=== PATIENT | male | born 1960 | race Caucasian/White ===

== ENCOUNTER 2022-05-26 13:54 | Outpatient (CLI) | payer OTHER, SELFPAY ==
[2022-05-26 23:25] LABS: Albumin* 4.5 g/dL (3.3-5.0); Chloride* 103 mmol/L (96-114); Potassium* 4.6 mmol/L (3.6-5.1); Sodium* 139 mmol/L (135-149)
[2022-05-26 23:27] LABS: Carbon Dioxide* 29 mmol/L (20-32); Cholesterol* 186 mg/dL (90-199); Creatinine* 1.1 mg/dL (0.5-1.5); Estimated Glomerular Filt Rate 77 ml/min
[2022-05-26 23:28] LABS: Alanine Aminotransferase* 57 U/L (4-50); Alkaline Phosphatase* 101 U/L (40-150); Aspartate Amino Transferase* 48 U/L (12-35); Bilirubin Total* 0.9 mg/dL (0.1-1.5); Blood Urea Nitrogen* 21 mg/dL (7-30); Glucose* 82 mg/dL (60-115); HDL Cholesterol* 39 mg/dL (>=40); LDL Cholesterol Calculated 119 mg/dL (<100); Total Protein* 7.6 g/dL (6.0-8.3); Triglycerides* 138 mg/dL (40-149)
[2022-05-26 23:51] LABS: PSA Screen* 1.15 ng/mL (0.10-4.00)
[2022-05-27 00:28] LABS: Calcium* 9.5 mg/dL (8.4-10.6)
== END 2022-05-26 13:55 | disposition home or self-care (01) ==
PROVIDERS: PCP Family Medicine; Visit Provider Family Medicine
DX: Z00.00 Encounter for general adult medical examination without abnormal findings (principal); Z12.5 Encounter for screening for malignant neoplasm of prostate; Z13.6 Encounter for screening for cardiovascular disorders
CPT/HCPCS: 80053; 80061; 84153

== ENCOUNTER 2023-06-15 15:35 | Outpatient (CLI) | payer OTHER, SELFPAY | END 2023-06-15 15:36 | disposition home or self-care (01) | PROVIDERS: PCP Family Medicine; Visit Provider Family Medicine | DX: E04.1 Nontoxic single thyroid nodule (principal); Z13.89 Encounter for screening for other disorder; Z13.220 Encounter for screening for lipoid disorders; Z13.228 Encounter for screening for other metabolic disorders | CPT/HCPCS: 80053; 80061; 80074; 84443 ==

== ENCOUNTER 2024-06-17 10:00 | Outpatient (CLI) | payer OTHER, SELFPAY | END 2024-06-17 10:01 | disposition home or self-care (01) | LOC: NFLDREF 06-20 04:06 | PROVIDERS: Visit Provider Nurse Practitioner Family | DX: Z13.220 Encounter for screening for lipoid disorders (principal); Z13.228 Encounter for screening for other metabolic disorders | CPT/HCPCS: 80053; 80061 ==

== ENCOUNTER 2024-06-30 06:28 | Outpatient (CLI) | payer OTHER, SELFPAY ==
--- NOTE | 2024-06-30 07:51 | W.ANESCHARGE ---
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
--- NOTE | 2024-06-30 08:18 | W.ANESCHARGE ---
Anesthesia Charges Start Date/Time Anesthesia Start Date: 06/30/24 Anesthesia Start Time: 07:10 Stop Date/Time Anesthesia Stop Date: 06/30/24 Anesthesia Stop Time: 07:48 Coding CPT Codes CPT Codes: KENNY LWR INTST NDMN NOS - 44260 ([id number]) P1 - NORMAL HEALTHY PATIENT, QK - SHOP DIRECTOR 2-4 CNCRNT ANES PROC, QX - TAXONOMIST SVC W/ MED DIRECTION
== END 2024-06-30 06:29 | disposition home or self-care (01) ==
LOC: OP CLINIC 06:28
PROVIDERS: PCP Nurse Practitioner Family; Visit Provider Surgery
DX: Z12.11 Encounter for screening for malignant neoplasm of colon (principal); D12.1 Benign neoplasm of appendix; D12.2 Benign neoplasm of ascending colon
CPT/HCPCS: 00811; 45385; 88305; J2704

== ENCOUNTER 2025-01-23 22:38 | Emergency (ER) | payer OTHER, SELFPAY ==
--- OUTSIDE RECORDS SUMMARY | 2025-01-23 22:40 | XMS_ITS | Clinical Summary ---
Author Organization [facility] Address [address] [place] [id number] Care Team Providers Care Stroboroma Operator Name Role Phone Pcp, No Primary Care Provider Unavailabl e Allergies No known active allergies Medications sildenafil citrate (VIAGRA) 100 mg tablet PLEASE SEE ATTACHED FOR DETAILED DIRECTIONS 4 Active naproxen (NAPROSYN) 500 mg tabletIndicatio ns:Acute left ankle pain Take 1 Tablet (500 mg) by mouth two times daily with meals. 28 Tablet 01/04/2025 7:25 PM CDT 5 Active Active Problems Problem Noted Date Diagnosed Date GANGLION, NOS 08/12/1999 Encounters Date Type Department Care Team Description 01/04/2025 6:35 PM CDT Ancillary Procedure [facility] [id number] [place] [phone] 01/04/2025 6:00 PM CDT Office Visit [facility] [place] [id number] [place] [phone] Jenny Cornejo, DO Ankle Pain/problem 01/04/2025 Travel from Last 3 Months Immunizations Immunization Administration Dates Next Due Tdap 10/21/2017,02/17/2006 Social History Tobacco Use Types Packs/Day Years Used Date Smoking Tobacco: Never Smokeless Tobacco: Current Chew Tobacco Cessation:Ready to Q uit: Not Asked; Counseling Given: Not Answered Alcohol Use Standard Drinks/Week Comments Yes 0 (1 standard drink = 0.6 oz pur e alcohol) once weekly Social Connections Answer Date Recorded Do you often feel lonely or isolated from those around you? 0 01/04/2025 Financial Resource Strain Answer Date R ecorded Difficulty of Paying Living Expenses 3 01/04/2025 Difficulty of Paying Living Expenses Not on file 01/04/2025 Food Insecurity Answer Date Recorded Do you worry your food will run out before you are able to buy more? 1 01/04/2025 Transportation Needs Answer Date Record ed Does lack of transportation keep you from medica l appointments? 1 01/04/2025 Does lack of transportation keep you from work, meetings or getting things that you need? 1 01/04/2025 Housing Stability Answer Date Recorded What is your housing situation today? 1 01/04/2025 Utilities Answer Date Recorded Do you have trouble paying f or utilities (for example, heat, electricity, water, phone)? 1 01/04/2025 Sex and Gender Information Value Date Recorded Sex Assigned at Not on file Legal Sex Male 5:27 AM POSTIE Gender Identity Not on file Sexual Orientation Not on file Obstetrics History Last Filed Vital Signs Vital Sign Reading Time Taken Comments Blood Pressure 125/59 01/04/2025 6:04 PM CDT Pulse 98 01/04/2025 6:04 PM CDT Temperature 36.3 C (97.4 F) 01/04/2025 6:04 PM CDT Respiratory Rate 14 01/04/2025 6:04 PM CDT Oxygen Saturation 97% 01/04/2025 6:04 PM CDT Inhaled Oxygen Concentration - - Weight 98 kg (216 lb) 12/29/2001 12:00 AM CDT Height 15.2 cm (6) 03/11/1999 12:00 AM CDT Body Mass Index 4218.46 03/11/1999 12:00 AM CDT Plan of Treatment Health Maintenance Due Date Last Done Comments Depression screening for age 12+ 1974 HIV for age 15-65 1977 BMI (ht and wt on same day) for age 18+ 1980 Hepatitis C screening for age 18-79 1980 Colonoscopy through age 75 2007 Lipids for age 45-75 2007 Pneumococcal series for age 50+ (1 of 1 - PCV) 2012 Zoster (shingles) series for age 50+ (1 of 2) 2012 COVID-19 vaccine series (2024- season) 2025 02/17/2023, 09/19/2021, 04/26/2021, Additional history exists Influenza Vaccine (#1) 2025 Tetanus booster 10/22/2027 10/21/2017, 02/17/2006 RSV vaccine for adults or (1 - 1-dose 75+ series) 2037 Hepatitis B series for 19+ Aged Out N o longer eligible based on patient's age to complete this topic Procedures Procedure Name Priority Date/Time Associated Diagnosis Comments XR ANKLE 3 VIEWS LEFT STAT 01/04/2025 6:51 PM CDT Acute left ankle pain from Last 3 Months Results * XR ANKLE 3 VIEWS LEFT (01/04/2025 6:51 PM CDT) Anatomical Region Laterality Modality ANKLES, ANKLE L Computed Radiogr aphy 01/04/2025 6:51 PM CDT Impressions 01/04/2025 6:58 PM CDT No acute displaced fracture. Small plantar calcaneal spur. Narrative 01/04/2025 6:58 PM CDT For Patients: As a result of the Cures Act, medical imaging exams and procedure reports are released immediately into your electronic medical record. You may view this report before your referring provider. If you have questions, please contact your health care provider. EXAM: XR ANKLE 3 VIEWS LEFT LOCATION: [facility] DATE: 01/04/2025 INDICATION: Acute Left Ankle Pain COMPARISON: None. Procedure Note Adiel Conrad MD - 01/04/2025 For Patients: As a result of the Cures Act, medical imagingexams and procedure reports are released immediately into your electronicmedical record. You may view this report before your referring provider.If you have questions, please contact your health care provider. EXAM: XR ANKLE 3 VIEWS LEFT LOCATION: [facility] [place] DATE: 01/04/2025 INDICATION: Acute Left Ankle Pain COMPARISON: None. IMPRESSION: No acute displaced fracture. Small plantar calcaneal spur. us Jenny Cornejo DO GENERAL IMAGING Fin al Result from Last 3 Months Insurance [facility] * Guarantor: LUIS ROMERO Account Type Relation to Patient Date of Phone Billing Address Personal/[place] [address] [facility] Care Teams Stroboroma Operator Relationship Specialty Start Date End Date Pcp, No . PCP - General 11/21/23
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
[2025-01-23 22:44] VITALS: BP 153/83; PULSE 71; RESP 21; TEMP 36.4; O2SAT 96; BMI 25.2
[2025-01-23] MEDS: FLUORESCEIN SODIUM TOPICAL STRIP 1 STRIP EYE-LEFT (23:07)
[2025-01-23] MEDS: TETRACAINE 0.5% OPHTH 2 DROP EYE-LEFT (23:07)
== END 2025-01-23 23:30 | disposition home or self-care (01) ==
LOC: ED 23:11
PROVIDERS: Emergency Provider Family Medicine; PCP Nurse Practitioner Family
DX: S05.02XA Injury of conjunctiva and corneal abrasion without foreign body, left eye, initial encounter (principal); H11.32 Conjunctival hemorrhage, left eye; W22.8XXA Striking against or struck by other objects, initial encounter
CPT/HCPCS: 99283; A9270